=== PATIENT | female | born 1970 | race Caucasian/White ===

== ENCOUNTER → 2021-03-23 | Outpatient (CLI) | payer OTHER ==
--- NOTE | 2021-03-23 08:49 | RAD ---
EXAM: Abdomen and pelvis CT without intravenous contrast. HISTORY: Pain. TECHNIQUE: Computed tomographic images of the abdomen and pelvis were obtained without contrast. Mult iplanar reformatting was performed. *One or more of the following individualized dose reduction techniques were utilized for this examina tion: 1. Automated exposure control. 2. Adjustment of the mA and/or kV according to patient size. 3. Use of iterative reconstruction technique. COMPARISON: None. FINDINGS: Evaluation of the lower thorax is unremarkable. No hepatic lesion is seen. The gallbladder is surgically absent. The pancreas, spleen and adrenal glands are unremarkable. There are postoperati ve changes involving the stomach. There is no nephroureterolithiasis or hydronephrosis. There is no appendicitis. There is distal colonic diverticulosis. There are 2 separate areas of focal fatty stranding surrounding the descending-sigmoid colon junction and mid sigmoid colon due to acute diverticulitis. There is no free air or drainable fluid collection. The uterus is absent. There are bilateral ovarian cysts, the largest of which measure 2.7 cm on the r ight and 2.1 cm on the left. There is trace pelvic free fluid. The uterus is absent. The bladder is u nremarkable. There are nonspecific mesenteric or retroperitoneal lymph nodes. There is no acute or gibson spicious osseous finding. IMPRESSION: 1. Acute diverticulitis involving the descending-sigmoid junction and mid sigmoid colon. No drainable abscess or free air is seen. 2. Bilateral ovarian cysts. If the patient is postmenopausal, pelvic sonography is recommended for ch aracterization. Electronically signed by: Gena Dockery MD (03/23/2021 8:47 AM) [id number]
== END ==
LOC: CT 07:46
PROVIDERS: ATTEND Physician Assistant Medical
DX: K57.32 Diverticulitis of large intestine without perforation or abscess without bleeding (principal); N83.202 Unspecified ovarian cyst, left side; N83.201 Unspecified ovarian cyst, right side; K57.30 Diverticulosis of large intestine without perforation or abscess without bleeding; Z90.49 Acquired absence of other specified parts of digestive tract; Z98.890 Other specified postprocedural states
CPT/HCPCS: 74176